=== PATIENT | male | born 1980 | race Two or more races ===

== ENCOUNTER 2019-12-19 18:17 | Emergency (ER) | payer OTHER ==
[~2019-12-19] VITALS: Ht 182.9 cm; Wt 79.4 kg
[2019-12-19 18:35] VITALS: BP 119/72
[2019-12-19] MEDS ORDERED: Bicillin LA 2.4MMU/4ML SYR IM ONE (19:00)
[2019-12-19] MEDS ORDERED: Lidocaine 1% MPF 10mg/ml 5ml INJ ONE (19:00)
[2019-12-19] MEDS ORDERED: Azithromycin 250mg tab ORAL ONE (19:00)
[2019-12-19 19:16] LABS: APPEARANCE,URINE CLEAR; BILIRUBIN, URINE NEGATIVE (NEGATIVE); COLOR,URINE PALE YELLOW; GLUCOSE, URINE (UA) NEGATIVE (NEGATIVE); KETONES,URINE NEGATIVE (NEGATIVE); LEUKOCYTE ESTERASE ,URINE NEGATIVE (NEGATIVE); NITRITE,URINE NEGATIVE (NEGATIVE); PH,URINE 6 (4.5-8.0); PROTEIN,URINE NEGATIVE (NEGATIVE); UROBILINOGEN,URINE NORMAL MG/DL (0.0-1.0)
[2019-12-19 19:40] VITALS: BP 119/72
--- NOTE | 2019-12-19 22:13 | Emergency Room Report ---
History of Present Illness General Chief Complaint: Male Urogenital Problems Source: Patient Present Illness HPI 39-year-old male with no significant past medical history here complaining of tingling sensation on penile gland x2 days after being sexually active. Unsure whether he was exposed to sexually transmitted disease. Denies any penile discharge and urinary frequency and urgency. Denies any past history of sexually transmitted diseases. Wants to be tested. Patient first agrees to be prophylactically treated for chlamydia, gonorrhea, syphilis, and get a prescription for treatment for possible herpes virus and go to [facility] for further evaluation. Patient then refuses to get treated and signed AGAINST MEDICAL ADVICE. Patient also complains of several months of left testicular pain that is intermittent. Denies any testicular pain or swelling at this time. Has not yet been seen by urologist Allergies: Coded Allergies: No Known Allergies (Unverified , 12/19/19) Patient History Past Medical History: see triage record Past Surgical History: none Pertinent Family History: none Immunizations: UTD Reviewed Nursing Documentation: PMH: Agreed; PSxH: Agreed Nursing Documentation-PMH Past Medical History: No Stated History Review of Systems All Other Systems: negative except mentioned in HPI Physical Exam Vital Signs Date Time Temp Pulse Resp B/P (MAP) Pulse Ox O2 Delivery O2 Flow Rate FiO2 12/19/19 18:25 98.2 66 17 119/72 (88) 99 Room Air Sp02 EP Interpretation: reviewed, normal General Appearance: no apparent distress, alert, GCS 15, non-toxic Head: normocephalic, atraumatic Eyes: bilateral eye normal inspection, bilateral eye PERRL ENT: hearing grossly normal, normal pharynx, no angioedema, normal voice Neck: full range of motion, supple/symm/no masses Respiratory: chest non-tender, lungs clear, normal breath sounds, no rhonchi, speaking full sentences Cardiovascular #1: regular rate, rhythm, no edema Gastrointestinal: soft Rectal: deferred Genitourinary: no CVA tenderness Musculoskeletal: back normal, normal range of motion, gait/station normal, non- tender Neurologic: alert, motor strength/tone normal, oriented x3, sensory intact, responsive, speech normal Psychiatric: normal inspection, judgement/insight normal, memory normal Skin: no rash Lymphatic: no adenopathy Medical Decision Making PA Attestation All diagnoses and treatment plans were reviewed and discussed with my supervising physician Dr. Morales Diagnostic Impression: Primary Impression: Left against medical advice ER Course 39-year-old male with no significant past medical history here complaining of tingling sensation on penile gland x2 days after being sexually active. Unsure whether he was exposed to sexually transmitted disease. Denies any penile discharge and urinary frequency and urgency. Denies any past history of sexually transmitted diseases. Wants to be tested. Patient first agrees to be prophylactically treated for chlamydia, gonorrhea, syphilis, and get a prescription for treatment for possible herpes virus and go to [facility] for further evaluation. Patient then refuses to get treated and signed AGAINST MEDICAL ADVICE. Patient also complains of several months of left testicular pain that is intermittent. Denies any testicular pain or swelling at this time. Has not yet been seen by urologist Ddx considered but are not limited to: UTI, chlamydia, Gohnorrea, syphylis, HIV , herpes 1 or 2 Vital signs: are WNL, pt. is afebrile H&PE are most consistent with : Prophylactic treatment for STD ORDERS: UA, urince cx, ED INTERVENTIONS: None required at this time. Patient refused treatment and left AGAINST MEDICAL ADVICE. Did not wait for urine sample results. Patient will follow with primary care provider tomorrow. Also advised patient to follow with urologist and no ultrasound of the testicles needed at this time as this is nonacute and patient sitting comfortably in no pain and no swelling Last Vital Signs Date Time Temp Pulse Resp B/P (MAP) Pulse Ox O2 Delivery O2 Flow Rate FiO2 12/19/19 19:40 98.2 75 17 119/72 99 Room Air Disposition: AGAINST MEDICAL ADVICE Condition: Stable Shasha Garcia Dec 19, 2019 22:13
== END 2019-12-19 19:40 | disposition left against medical advice (07) ==
LOC: EMR 19:40
DX: R20.2 Paresthesia of skin (principal)
CPT/HCPCS: 81003; 96372; Z7502; 99283

== ENCOUNTER 2020-03-15 23:29 | Emergency (ER) | payer MEDICAID, OTHER ==
[~2020-03-15] VITALS: Ht 182.9 cm; Wt 79.4 kg
--- NOTE | 2020-03-15 23:46 | NUR ---
[facility] Nurse Note: Pt ambulated to ED from home c/o CP and pressure radiating to R arm, also a "lump" when he swallows food. Pt reports getting "winded" when on his usual run. VSS. Pt is A&Ox4. PT placed on campus monitor. ERMD at bedside
--- NOTE | 2020-03-15 23:57 | Emergency Room Report ---
History of Present Illness General Chief Complaint: Chest Pain Source: Patient Present Illness HPI This a 39-year-old male with no past medical history. He presents with chief complaint of chest pain. Pain is across his chest into his upper back neck and shoulder area. Pain is a tightness. Complains of mild shortness of breath. No fever chills but no nausea or vomiting. Is been constant all day. Better now. At maximum it was a 7 out of 10. Now is about a 2 out of 10. Did not take any thing for it. No exertional component. No diaphoresis. No shortness of breath. Nothing made it better. Nothing made it worse. Allergies: Coded Allergies: No Known Allergies (Unverified , 12/19/19) COVID-19 Screening Contact w/high risk pt: No Recent Travel to affected area: No Experienced COVID-19 symptoms?: No COVID-19 Testing performed [employer]ING: No Patient History Past Medical History: none, see triage record, old chart reviewed Past Surgical History: none Pertinent Family History: none Social History: Denies: smoking Immunizations: other Reviewed Nursing Documentation: PMH: Agreed; PSxH: Agreed Review of Systems Eye: Denies: eye pain, blurred vision ENT: Denies: ear pain, nose congestion, throat swelling Respiratory: Denies: cough, shortness of breath Cardiovascular: Reports: chest pain; Denies: palpitations Gastrointestinal: Denies: abdominal pain, diarrhea, nausea, vomiting Musculoskeletal: Denies: back pain, joint pain Skin: Denies: rash Neurological: Denies: headache, numbness Endocrine: Denies: increased thirst, increased urine Hematologic/Lymphatic: Denies: easy bruising All Other Systems: negative except mentioned in HPI Physical Exam Vital Signs Date Time Temp Pulse Resp B/P (MAP) Pulse Ox O2 Delivery O2 Flow Rate FiO2 03/15/20 23:39 98.2 67 16 124/76 (92) 96 Room Air Vitals normal Sp02 EP Interpretation: reviewed, normal General Appearance: well appearing, no apparent distress, alert Head: normocephalic, atraumatic Eyes: bilateral eye PERRL, bilateral eye EOMI ENT: hearing grossly normal, normal pharynx Neck: full range of motion, supple, no meningismus Respiratory: chest non-tender, lungs clear, normal breath sounds Cardiovascular #1: regular rate, rhythm, no murmur Gastrointestinal: normal bowel sounds, non tender, no mass, no organomegaly, no bruit, non-distended Musculoskeletal: back normal, normal range of motion, gait/station normal Psychiatric: mood/affect normal Medical Decision Making Diagnostic Impression: Primary Impression: Chest pain Qualified Codes: R07.9 - Chest pain, unspecified ER Course Patient presents with atypical chest pain. Pain been constant and troponin is negative. EKG is normal. Patient is an active runner. No evidence of ACS, PE , dissection to name a few. This most likely musculoskeletal in nature. Could also be GI related. Will discharge home. EKG Diagnostic Results Rate: normal Rhythm: NSR ST Segments: no acute changes ASA given to the pt in ED: Yes Rhythm Strip Diag. Results EP Interpretation: yes Rate: 60 Rhythm: NSR, no PVC's Chest X-Ray Diagnostic Results Chest X-Ray Diagnostic Results : Chest X-Ray Ordered: Yes # of Views/Limited/Complete: 1 View Indication: Chest Pain EP Interpretation: Yes Interpretation: no consolidation, no effusion, no pneumothorax, no acute cardiopulmonary disease Impression: No acute disease Electronically Signed by: Mathew Harmon MD Last Vital Signs Date Time Temp Pulse Resp B/P (MAP) Pulse Ox O2 Delivery O2 Flow Rate FiO2 03/15/20 23:39 98.2 67 16 124/76 (92) 96 Room Air Status: improved Disposition: HOME, SELF-CARE Condition: Stable Patient Instructions: Nonspecific Chest Pain Additional Instructions: Follow-up with your doctor in 7 days. Return if symptoms worsen. Mathew Harmon MD March 15, 2020 23:57
[2020-03-15 23:59] VITALS: BP 124/76
[2020-03-16] MEDS ORDERED: Aspirin Baby 81mg ORAL ONE
[2020-03-16] MEDS ORDERED: Aspirin Baby 81mg ONE (00:04)
--- NOTE | 2020-03-16 00:27 | Diagnostic Imaging Report ---
EXAM: XR Chest, 1 View CLINICAL HISTORY: CP TECHNIQUE: Frontal view of the chest. COMPARISON: No relevant prior studies available. FINDINGS: Lungs: No significant abnormality. No consolidation. Pleural space: No significant abnormality. No pneumothorax. Heart: No significant abnormality. No cardiomegaly. Mediastinum: No significant abnormality. Bones/joints: No acute osseous abnormality. IMPRESSION: No acute cardiopulmonary process.
[2020-03-16 00:58] LABS: BASOPHILS % (AUTO) 1.1 % (0.0-2.0); EOSINOPHILS % (AUTO) 1.9 % (0.0-3.0); HEMATOCRIT 44.7 % (42.0-52.0); HEMOGLOBIN 16.2 G/DL (14.2-18.0); LYMPHOCYTES % (AUTO) 37.1 % (20.0-45.0); MEAN CORPUSCULAR VOLUME 84 FL (80-99); MONOCYTES % (AUTO) 9.3 % (1.0-10.0); NEUTROPHILS % (AUTO) 50.6 % (45.0-75.0); PLATELET COUNT 217 K/UL (150-450); RED BLOOD COUNT 5.32 M/UL (4.70-6.10); RED CELL DISTRIBUTION WIDTH 10.7 % (11.6-14.8); WHITE BLOOD COUNT 7.5 K/UL (4.8-10.8)
[2020-03-16 01:00] LABS: APPEARANCE,URINE CLEAR; BILIRUBIN, URINE NEGATIVE (NEGATIVE); GLUCOSE, URINE (UA) NEGATIVE (NEGATIVE); KETONES,URINE NEGATIVE (NEGATIVE); LEUKOCYTE ESTERASE ,URINE NEGATIVE (NEGATIVE); NITRITE,URINE NEGATIVE (NEGATIVE); PH,URINE 6 (4.5-8.0); PROTEIN,URINE NEGATIVE (NEGATIVE); UROBILINOGEN,URINE NORMAL MG/DL (0.0-1.0)
[2020-03-16 01:07] LABS: COLOR,URINE YELLOW
[2020-03-16 01:10] LABS: ANION GAP 7 mmol/L (5-15); BLOOD UREA NITROGEN 19 mg/dL (7-18); CALCIUM 9.9 MG/DL (8.5-10.1); CARBON DIOXIDE 30 MMOL/L (21-32); CHLORIDE 104 MMOL/L (98-107); CREATININE 1.1 MG/DL (0.55-1.30); SODIUM 141 MMOL/L (136-145)
[2020-03-16 01:18] LABS: ALANINE AMINOTRANSFERASE 47 U/L (12-78); ALBUMIN 4.4 G/DL (3.4-5.0); ALBUMIN/GLOBULIN RATIO 1.6 (1.0-2.7); ALKALINE PHOSPHATASE 69 U/L (46-116); ASPARTATE AMINO TRANSFERASE 21 U/L (15-37); BILIRUBIN,TOTAL 0.5 MG/DL (0.2-1.0)
[2020-03-16 01:30] VITALS: BP_SYST 123; BP_SYST 124; BP_DIAS 66; BP_DIAS 76
--- NOTE | 2020-03-16 01:30 | NUR ---
ER DISCHARGE NOTE: Patient is cleared to be discharged per ERMD, pt is aox4, on room air, with stable vital signs. pt was given dc instructions, pt was able to verbalize understanding, pt id band and iv site removed without complications. pt is able to ambulate with steady gait. pt took all belongings.
== END 2020-03-16 01:30 | disposition home or self-care (01) ==
LOC: EMR 23:59
DX: R07.9 Chest pain, unspecified (principal); R06.02 Shortness of breath; M54.6 Pain in thoracic spine; M54.2 Cervicalgia; M25.519 Pain in unspecified shoulder
CPT/HCPCS: 36415; 71045; 80053; 81003; 84484; 85025; 93005; Z7502; 99283